=== PATIENT | female | born 1995 | race Caucasian/White ===

== ENCOUNTER → 2018-07-02 17:24 | Emergency (ER) | payer BC ==
[2018-07-02 18:06] LABS: ABS Basophils 0 10^3/ul (0-0.2); ABS Eosinophils 0.2 10^3/ul (0-0.6); ABS Lymphocytes 1.7 10^3/ul (1.0-4.8); ABS Monocytes 0.3 10^3/ul (0-0.8); ABS Neutrophils 2.9 10^3/ul (1.5-7.7); ABS Nucleated RBC 0 10^3/ul; Eosinophil % 4.3 % (0-6); Hematocrit 39 % (35-47); Hemoglobin 13.4 g/dl (12.0-16.0); Lymphocyte % 32.9 % (25-47); Mean Corpuscular HGB Conc 34 g/dl (31-36); Mean Corpuscular Hemoglobin 30 pg (27-31); Mean Corpuscular Volume 87 fL (80-97); Mean Platelet Volume 8.6 um3 (7.4-10.4); Nucleated Red Blood Cells % 0.1; Platelet Count 273 10^3/ul (150-450); Red Blood Count 4.51 10^6/ul (4.00-5.40); Red Cell Distribution Width 13 % (10.5-15); White Blood Count 5.1 10^3/ul (3.5-10.8)
--- NOTE | 2018-07-02 18:08 | ED ---
Psychiatric Complaint - HPI Summary HPI Summary: Patient is a 22 y/o F w/ c/o SI. Patient went to [facility] to report her desire to overdose on anything she can find. Patient was sent here. She notes that these Sx have been going on for some time, noting that she had felt depressed over the summer. Patient states she feels "weird" and "discombobulated" and cannot focus. She states she has been drinking EtOH a lot recently and is having thoughts dying by suicide via overdose. She states she has not tried yet, but notes she has come close. No HI is noted. Patient notes that she smokes marijuana, reports sleeping a lot recently, and notes sleeping a lot recently. Home medications and allergies reviewed. On triage, pain is denied, nothing is noted to aggravate/alleviate Sx. - History Of Current Complaint Chief Complaint: EDMentalHealth Time Seen by Provider: 07/02/18 17:47 Hx Obtained From: Patient Onset/Duration: Lasting Weeks - reports Sx present for "a long time" and notes experiencing depression this past summer, Still Present Timing: Constant Severity Currently: None - pain denied Character: Depressed Aggravating Factor(s): Nothing Alleviating Factor(s): Nothing Has Suicidal: Reports: Thoughts, With A Plan Has Homicidal: Denies: Thoughts - Allergies/Home Medications Allergies/Adverse Reactions: Allergies Allergy/AdvReac Type Severity Reaction Status Date / Time No Known Allergies Allergy Verified 07/02/18 17:40 Home Medications: Home Medications FLUoxetine CAP* [PROzac CAP*] 40 mg PO DAILY 07/02/18 [History Confirmed ] Gabapentin 600 mg PO BID 07/02/18 [History Confirmed 07/02/18] Naltrexone TAB* 50 mg PO BEDTIME 07/02/18 [History Confirmed 07/02/18] hydrOXYzine HCL TAB* [Atarax TAB 50 MG *] 50 mg PO BEDTIME PRN 07/02/18 [ History Confirmed 07/02/18] PMH/Surg Hx/FS Hx/Imm Hx Sensory History: Denies: Hx Legally Blind, Hx Deafness Opthamlomology History: Denies: Hx Legally Blind EENT History: Denies: Hx Deafness Infectious Disease History: No Infectious Disease History: Denies: Traveled Outside the [place] in Last 30 Days - Family History Known Family History: Negative: Blood Disorder - Social History Alcohol Use: Weekly Substance Use Type: Reports: Other Substance Use Comment - Amount & Last Used: adderall and valium Smoking Status (MU): Former Smoker Review of Systems Positive: Other - feeling "weird" and "discombobulated" and cannot focus. Positive: Other - SI All Other Systems Reviewed And Are Negative: Yes Physical Exam - Summary Physical Exam Summary: VITAL SIGNS: Reviewed. GENERAL: Patient is a well-developed and nourished female who is lying comfortable in the stretcher. Patient is not in any acute respiratory distress. HEAD AND FACE: No signs of trauma. No ecchymosis, hematomas or skull depressions. No sinus tenderness. EYES: PERRLA, EOMI x 2, No injected conjunctiva, no nystagmus. EARS: Hearing grossly intact. Ear canals and tympanic membranes are within normal limits. MOUTH: Oropharynx within normal limits. NECK: Supple, trachea is midline, no adenopathy, no JVD, no carotid bruit, no c- spine tenderness, neck with full ROM. CHEST: Symmetric, no tenderness at palpation LUNGS: Clear to auscultation bilaterally. No wheezing or crackles. CVS: Regular rate and rhythm, S1 and S2 present, no murmurs or gallops appreciated. ABDOMEN: Soft, non-tender. No signs of distention. No rebound no guarding, and no masses palpated. Bowel sounds are normal. EXTREMITIES: FROM in all major joints, no edema, no cyanosis or clubbing. NEURO: Alert and oriented x 3. No acute neurological deficits. Speech is normal and follows commands. SKIN: Dry and warm PSYCH: Depressed, quiet, and notes suicidal thoughts and plan. No homicidal thoughts or plan. No signs of psychosis or pressure speech. No tangential speech. Triage Information Reviewed: Yes Vital Signs On Initial Exam: Initial Vitals Temp Pulse Resp BP Pulse Ox 99.0 F 54 16 121/62 100 07/02/18 17:29 07/02/18 17:29 07/02/18 17:29 07/02/18 17:29 18 17:29 Vital Signs Reviewed: Yes Diagnostics - Vital Signs Vital Signs Temp Pulse Resp BP Pulse Ox 07/02/18 17:29 99.0 F 54 16 121/62 100 - Laboratory Lab Results: Lab Results 07/02/18 Range/Units 17:59 WBC 5.1 (3.5-10.8) 10^3/ul RBC 4.51 (4.00-5.40) 10^6/ul Hgb 13.4 (12.0-16.0) g/dl Hct 39 (35-47) % MCV 87 (80-97) fL MCH 30 (27-31) pg MCHC 34 (31-36) g/dl RDW 13 (10.5-15) % Plt Count 273 (150-450) 10^3/ul MPV 8.6 (7.4-10.4) um3 Neut % (Auto) 55.7 (38-83) % Lymph % (Auto) 32.9 (25-47) % [place] % (Auto) 6.5 (0-7) % Eos % (Auto) 4.3 (0-6) % Baso % (Auto) 0.6 (0-2) % Absolute Neuts (auto) 2.9 (1.5-7.7) 10^3/ul Absolute Lymphs (auto) 1.7 (1.0-4.8) 10^3/ul Absolute Monos (auto) 0.3 (0-0.8) 10^3/ul Absolute Eos (auto) 0.2 (0-0.6) 10^3/ul Absolute Basos (auto) 0 (0-0.2) 10^3/ul Absolute Nucleated RBC 0 10^3/ul Nucleated RBC % 0.1 Result Diagrams: 07/02/18 17:59 07/02/18 18:00 Lab Statement: Any lab studies that have been ordered have been reviewed, and results considered in the medical decision making process. Re-Evaluation - Re-Evaluation First Eval Re-Evaluation Time: 18:02 Comment: Patient medically clear for MHE. Course/Dx - Course Assessment/Plan: Blood work without any significant abnormality. Patient is medically clear. Patient is awaiting for mental health evaluation. Patient signed out to Dr. Last at shift change. - Differential Dx/Clinical Impression Differential Diagnosis/HQI/PQRI: Positive: Depression Provider Diagnosis: Depression Discharge - Sign-Out/Discharge Documenting (check all that apply): Sign-Out Patient Signing out patient TO: Basil Last Receiving patient FROM: Alexi Jacques - Discharge Plan Condition: Stable Disposition: HOME Patient Education Materials: Depression (ED) Referrals: [facility] [Outside] Additional Instructions: Per completion of a mental health evaluation, you are cleared for release and do not require inpatient psychiatric hospitalization at this time. Please go to nearest emergency room or call 911 if safety concerns arise or condition worsens. [facility]........[phone] Suicide Prevention and Crisis Services........................[phone] [place] Suicide Prevention Lifeline............................[phone] ( [phone]) [facility].......................[phone] Alcoholics Anonymous...............................................[phone] [facility]..............[phone] [facility] Police..............................................[phone] - Billing Disposition and Condition Condition: STABLE Disposition: Home - Attestation Statements Document Initiated by Bashir: Yes Documenting Scribe: Duke Stein Provider For Whom Bashir is Documenting (Include Credential): Alexi Jacques MD Scribe Attestation: I, Duke Stein scribed for Alexi Jacques MD on 07/03/18 at 1640. Scribe Documentation Reviewed: Yes Provider Attestation: The documentation as recorded by the Duke hernandez accurately reflects the service I personally performed and the decisions made by me, Alexi Jacques MD
[2018-07-02 18:11] LABS: Urine Appearance Cloudy; Urine Blood Negative (Negative); Urine Color Yellow; Urine Ketones Negative (Negative); Urine Protein Negative (Negative); Urine Red Blood Cell Trace(0-2/hpf) (Absent); Urine Specific Gravity 1.005 (1.010-1.030); Urine Urobilinogen Negative (Negative); Urine White Blood Cell Trace(0-5/hpf) (Absent)
[2018-07-02 18:22] LABS: EGFR Non-African American 82.2 (>60)
[2018-07-02 19:46] VITALS: BP 97/51
--- NOTE | 2018-07-03 03:35 | ED ---
Progress - Progress Note Progress Note: Receiving sign out from Dr. Jacques. Pt is discharged with a final dx of depression. - Consult/PCP Time Called: 20:55 Re-Evaluation - Re-Evaluation First Eval Re-Evaluation Time: 18:02 Comment: Patient medically clear for MHE. Course/Dx - Diagnoses Provider Diagnoses: Depression Discharge - Sign-Out/Discharge Documenting (check all that apply): Patient Departure - Discharge, Receiving Sign-Out Receiving patient FROM: Alexi Jacques - Discharge Plan Condition: Stable Disposition: HOME Patient Education Materials: Depression (ED) Referrals: [facility] [Outside] Additional Instructions: Per completion of a mental health evaluation, you are cleared for release and do not require inpatient psychiatric hospitalization at this time. Please go to nearest emergency room or call 911 if safety concerns arise or condition worsens. [facility]........[phone] Suicide Prevention and Crisis Services........................[phone] National Suicide Prevention Lifeline............................[phone] ( [phone]) [facility].......................[phone] Alcoholics Anonymous...............................................[phone] [facility]..............[phone] [place] [employer] Police..............................................[phone] - Attestation Statements Document Initiated by Scribe: Yes Documenting Scribe: Lesa Watt Provider For Whom Scribe is Documenting (Include Credential): MD Bashir Mac Attestation: I, Lesa Azari, scribed for Basil Last MD on 07/03/18 at 0623.
== END | disposition home or self-care (01) ==
LOC: ED 17:24
DX: F32.9 Major depressive disorder, single episode, unspecified (principal); R45.851 Suicidal ideations; Z87.891 Personal history of nicotine dependence
CPT/HCPCS: 36415; 80053; 80307; 80320; 80329; 81003; 81015; 84443; 85025; 87086; 99285; G0480

== ENCOUNTER 2018-08-13 18:28 | Emergency (ER) | payer BC ==
[2018-08-13 21:33] LABS: ABS Basophils 0 10^3/ul (0-0.2); ABS Eosinophils 0.1 10^3/ul (0-0.6); ABS Lymphocytes 2.1 10^3/ul (1.0-4.8); ABS Monocytes 0.4 10^3/ul (0-0.8); ABS Neutrophils 4.5 10^3/ul (1.5-7.7); ABS Nucleated RBC 0 10^3/ul; Hematocrit 43 % (35-47); Hemoglobin 14.7 g/dl (12.0-16.0); Lymphocyte % 29.3 % (25-47); Mean Corpuscular HGB Conc 34 g/dl (31-36); Mean Corpuscular Hemoglobin 30 pg (27-31); Mean Corpuscular Volume 87 fL (80-97); Mean Platelet Volume 8.7 um3 (7.4-10.4); Nucleated Red Blood Cells % 0.1; Platelet Count 301 10^3/ul (150-450); Red Blood Count 4.94 10^6/ul (4.00-5.40); Red Cell Distribution Width 14 % (10.5-15); White Blood Count 7.1 10^3/ul (3.5-10.8)
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
[2018-08-13 21:51] LABS: EGFR Non-African American 89.3 (>60)
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
[2018-08-13 22:45] VITALS: BP 128/78
== END 2018-08-13 22:44 | disposition home or self-care (01) ==
LOC: ED 18:28
DX: T74.21XA Adult sexual abuse, confirmed, initial encounter (principal); Z87.891 Personal history of nicotine dependence
CPT/HCPCS: 36415; 80053; 84702; 85025; 86703; 86706; 86803; 87340; 99284